=== PATIENT | male | born 1975 | race Caucasian/White ===

== ENCOUNTER → 2019-05-08 | Outpatient (CLI) | payer SELFPAY ==
[2019-05-08 13:48] LABS: HEMATOCRIT 46.5 % (42.0-52.0); HEMOGLOBIN 14.8 g/dL (13.5-18.0); MEAN CELL VOLUME 94 fl (78-100); MEAN CORPUSCULAR HEMOGLOBIN 30 pg (27-31); MEAN CORPUSCULAR HGB CONC 32 g/dL (33-37); MEAN PLATELET VOLUME 10.2 fl (7.4-10.4); PLATELET COUNT 341 K/mm3 (130-400); RED BLOOD COUNT 4.96 M/mm3 (4.20-5.60); RED CELL DISTRIBUTION WIDTH 13.6 % (11.5-14.5); WHITE BLOOD COUNT 17.7 K/mm3 (4.8-10.8)
[2019-05-08 13:56] LABS: POTASSIUM 4.9 mmol/L (3.5-5.1)
[2019-05-08 13:57] LABS: CALCIUM 10.1 mg/dL (8.3-10.5)
[2019-05-08 13:58] LABS: TOTAL PROTEIN 7.2 g/dL (6.4-8.3)
[2019-05-08 14:00] LABS: TOTAL BILIRUBIN 0.7 mg/dL (0.2-1.2)
[2019-05-08 14:05] LABS: LYMPHOCYTE 67 % (20-51); MONOCYTE 2 % (3-10); NEUTROPHILS 22 % (42-75)
== END ==
LOC: LAB 13:32
PROVIDERS: Nurse Practitioner
DX: F32.9 Major depressive disorder, single episode, unspecified (principal); F41.1 Generalized anxiety disorder

== ENCOUNTER → 2021-10-11 | Outpatient (CLI) | payer OTHER ==
[2021-10-11 08:26] LABS: HEMATOCRIT 45.7 % (42.0-52.0); MEAN CELL VOLUME 92 fl (78-100); MEAN CORPUSCULAR HEMOGLOBIN 30 pg (27-31); MEAN CORPUSCULAR HGB CONC 33 g/dL (33-37); MEAN PLATELET VOLUME 9.1 fl (7.4-10.4); PLATELET COUNT 301 K/mm3 (130-400); RED BLOOD COUNT 4.99 M/mm3 (4.20-5.60); RED CELL DISTRIBUTION WIDTH 13.2 % (11.5-14.5); WHITE BLOOD COUNT 18.2 K/mm3 (4.8-10.8)
[2021-10-11 08:33] LABS: POTASSIUM 4.6 mmol/L (3.5-5.1)
[2021-10-11 08:34] LABS: ALBUMIN 4.2 g/dL (3.5-5.0)
[2021-10-11 08:35] LABS: CALCIUM 9.4 mg/dL (8.3-10.5)
[2021-10-11 08:36] LABS: TOTAL PROTEIN 6.7 g/dL (6.4-8.3)
[2021-10-11 08:38] LABS: TOTAL BILIRUBIN 0.5 mg/dL (0.2-1.2)
[2021-10-11 09:23] LABS: NEUTROPHILS 25 % (42-75)
[2021-10-11 09:24] LABS: LYMPHOCYTE 72 % (20-51); MONOCYTE 2 % (3-10)
[2021-10-11 23:46] LABS: TESTOSTERONE 464 ng/dL (240-871)
== END ==
LOC: LAB 08:11
PROVIDERS: Family Medicine
DX: E06.9 Thyroiditis, unspecified (principal); E55.9 Vitamin D deficiency, unspecified; E78.5 Hyperlipidemia, unspecified; R73.9 Hyperglycemia, unspecified; J30.9 Allergic rhinitis, unspecified; E78.00 Pure hypercholesterolemia, unspecified; R10.9 Unspecified abdominal pain